=== PATIENT | male | born 1960 | race Caucasian/White ===

== ENCOUNTER 2018-01-11 14:27 | Outpatient (CLI) | payer BC ==
--- NOTE | 2018-01-11 15:58 | MRI ---
MRI LUMBAR SPINE WITHOUT CONTRAST: Multiplanar multisequential imaging lumbar spine obtained. INDICATION: Lumbar radiculopathy. FINDINGS: The lumbar vertebrae maintain normal height and alignment. Vertebral body signal is normal. Degenerative disk changes with disk narrowing seen at L2-3, L4-5, and L5-S1. At L1-2, there is an asymmetric disk bulge paracentrally to the left which flattens the anterior thec al sac. No significant central canal or foraminal stenosis. At L2-3, broad-based disk protrusions present. This flattens the thecal sac and is associated with f acet hypertrophy resulting in moderate to severe central canal stenosis. Bilateral foraminal encroac hment from the diffuse disk. At L3-4, no significant disk bulge or protrusion. Mild facet arthrosis and hypertrophy. No signific ant central canal or foraminal stenosis. At L4-5, broad-based disk protrusion flattens the thecal sac. Facet and ligamentous hypertrophy. Mo derate to severe central canal stenosis. Bilateral foraminal encroachment from the diffuse disk prot rusion. At L5-S1, broad-based disk protrusion with focal extruded disk centrally and slightly to the left com pressing the thecal sac. Facet hypertrophy. Moderate to severe central canal stenosis. Displacemen t of the traversing left S1 nerve root. Moderate central canal stenosis. IMPRESSION: Disk protrusion at L2-3, L4-5, and L5-S1 as described above. POS: [facility]
== END 2018-01-11 14:28 | disposition home or self-care (01) ==
LOC: MRI 14:27
PROVIDERS: ATTEND Student in an Organized Health Care Education/Training Program
DX: M51.16 Intervertebral disc disorders with radiculopathy, lumbar region (principal); M51.17 Intervertebral disc disorders with radiculopathy, lumbosacral region; R20.8 Other disturbances of skin sensation
CPT/HCPCS: 72148

== ENCOUNTER 2018-01-25 09:36 | Outpatient (CLI) | payer BC | END 2018-01-25 09:37 | disposition home or self-care (01) | LOC: LABBT 09:36 | PROVIDERS: ATTEND Neurological Surgery | DX: Z01.818 Encounter for other preprocedural examination (principal); M54.16 Radiculopathy, lumbar region ==

== ENCOUNTER 2018-01-27 07:15 | Day surgery (SDC) | payer BC ==
[2018-01-25 09:52] VITALS: BMI 33.6
[2018-01-27] MEDS ORDERED: CEFAZOLIN/Water 2 GM/20 ML SYRINGE ONE (08:45)
[2018-01-27] MEDS ORDERED: Midazolam HCl 2 mg/2 ml Vial ONE (09:15)
[2018-01-27] MEDS ORDERED: Bupivacaine HCl 0.5%/Epinephrine 1:200,000/PF 30 ml Vial ONE (09:25)
[2018-01-27] MEDS ORDERED: Fentanyl 100 MCG/2 ML VIAL ONE ×2 (09:31→12:20)
[2018-01-27] MEDS ORDERED: Clindamycin/D5W 900 mg/50 ml Premix Bag ONE (09:51)
--- NOTE | 2018-01-27 13:24 | OP ---
DATE OF PROCEDURE: 01/27/2018 SURGEON: Job José M.D. SENIOR FOREMAN: Juan Antonio Ramirez PA-C. INDICATION: Pain. DIAGNOSIS: Lumbar radiculopathy. PROCEDURE: L4 and L5 discectomy. ANESTHESIA: General. TECHNIQUE: The patient was brought into the operating room and placed under general anesthesia. He was flipped from a supine or prone position on the operating room table. A linear incision was plann ed over L4-5. After prepping and draping and after an appropriate operative pause, the incision was created. The soft tissues were swept away from midline. A self-retaining retractor was placed on th e left side. After obtaining a C-arm image confirmed the appropriate level, hemilaminectomy and deco mpression were performed at L4 and L5. The descending L5 nerve root was mobilized medially and a dis kectomy was performed. The L5 disk space entered. There was decompression of the descending S1 nerv e root. We then redirected our attention to the level above at L4 where the L5 nerve root was mobili zed medially where there was a diskectomy performed at the L4 disc space to decompress the descending L5 nerve root. After both levels were decompressed via hemilaminectomy, medial facetectomy, diskect angeli, the wound was irrigated. Hemostasis was maintained throughout. The wound was then closed in an atomic layers and a pressure dressing was applied. There were no known procedural complications.
[2018-01-27] MEDS ORDERED: Acetaminophen/Codeine 30-300mg Tablet ONE (13:40)
== END 2018-01-27 14:45 | disposition home or self-care (01) ==
LOC: SDC 07:15
PROVIDERS: ATTEND Neurological Surgery
PROC: 01NB0ZZ Release Lumbar Nerve, Open Approach (ICD-10-PCS; principal; 2018-01-27)
PROC: 0SB20ZZ Excision of Lumbar Vertebral Disc, Open Approach (ICD-10-PCS; principal; 2018-01-27)
DX: M51.16 Intervertebral disc disorders with radiculopathy, lumbar region (principal); M48.061 Spinal stenosis, lumbar region without neurogenic claudication; Z88.1 Allergy status to other antibiotic agents; Z88.2 Allergy status to sulfonamides; Z79.899 Other long term (current) drug therapy
CPT/HCPCS: 76001; 96374; J0670; J2250; J3010; J3490

== ENCOUNTER 2018-04-01 09:07 | Outpatient (CLI) | payer BC ==
--- NOTE | 2018-04-01 12:41 | MRI ---
CERVICAL SPINE MRI WITHOUT CONTRAST: HISTORY: Pain. Radiculopathy. COMPARISON: None. TECHNIQUE: MRI cervical spine is performed without intravenous Gadolinium administration. Multisequential, mult iplanar imaging is performed. FINDINGS: Appropriate T1 marrow signal intensity of the cervical vertebrae. Cervical spine vertebral body heig ht is maintained. There is no fracture. No significant STIR hyperintensity to suggest vertebral bod y edema or ligamentous injury. There is intrinsic T1 and T2 hypointensity at the T2 level, incompletely evaluated. Visualized brain parenchyma, cervicomedullary junction, cervical cord, and the upper thoracic cord wilkes ve a normal size and signal intensity. C2-C3: No significant disk-osteophyte complex. No significant central canal stenosis. Foramen are patent. C3-C4: No significant disk-osteophyte complex. No significant central canal stenosis. Neural matt en are patent bilaterally. C4-C5: Broad-based disk-osteophyte complex has a left paracentral component. Moderate right foramin al narrowing. Severe left foraminal narrowing due to degenerative change of the uncovertebral joint. C5-C6: Broad-based disk-osteophyte complex abuts the thecal sac. Ventral subarachnoid space is effa yas. There is mild to moderate central canal stenosis. Moderate to severe bilateral foraminal narro wing due to degenerative changes of the uncovertebral joint. C6-C7: Broad-based disk-osteophyte complex abuts the thecal sac. There is no significant central ca nal stenosis. Moderate to severe bilateral foraminal narrowing. C7-T1: No significant disk-osteophyte complex. No significant central canal stenosis. Neural matt en are patent. IMPRESSION: Degenerative changes of the cervical spine as above. POS: [facility]
== END 2018-04-01 09:08 | disposition home or self-care (01) ==
LOC: SCSMRI 09:07
PROVIDERS: ATTEND Neurological Surgery
DX: M47.22 Other spondylosis with radiculopathy, cervical region (principal)
CPT/HCPCS: 72141

== ENCOUNTER → 2018-08-20 | Day surgery (SDC) | payer BC ==
[2018-08-13 14:01] VITALS: BMI 34.0
--- NOTE | 2018-08-19 16:33 | HP ---
HISTORY OF PRESENT ILLNESS: Mr. Stone is a pleasant 57-year-old man known to us for previous lumbar decompression over the summer time last year, who returns now with significant neck pain and bilateral radicular symptoms, which most fit C6, but also partial C7 fashion. He hopes to move forward with treating this surgically if possible. PAST MEDICAL HISTORY: Significant for gout and history of kidney stones as well as melanoma. PAST SURGICAL HISTORY: Lithotripsy and colectomy. MEDICATIONS: Allopurinol. ALLERGIES: NO KNOWN DRUG ALLERGIES. PHYSICAL EXAMINATION: GENERAL: The patient is alert and oriented x3. MUSCULOSKELETAL: Gait is normal. No ataxia. Upper extremity motor exam is normal. He has some limited range of motion of cervical spine and rotational movement to the left and right. ASSESSMENT: Cervical radiculopathy. PLAN: Dr. José met with the patient, reviewed imaging, advocated for C5-C7 ACDF. He explained to the patient the risks, benefits, and alternatives to the procedure. The patient expressed understanding and elected to move forward with surgery as discussed. I do believe the patient is mentally competent and capable of making medical decisions for himself. We will move forward with surgery as planned. Job ID: [id number]
[~2018-08-20] MED LIST: Acetaminophen/Codeine 30-300mg Tablet ONE; CEFAZOLIN 2 GM/50 ML BAG ONE; Clindamycin/D5W 900 mg/50 ml Premix Bag ONE; Dexamethasone 20 MG/5 ML VIAL ONE; Fentanyl 100 MCG/2 ML VIAL ONE; Glycopyrrolate 0.2 MG/ML 5 ML SYRINGE ONE; Ketorolac Tromethamine 30 MG/ML VIAL ONE; Levofloxacin 500 mg/D5W 100 ml Premix Bag ONE; Lidocaine 1% PF 5 ML VIAL ONE; Midazolam HCl 2 mg/2 ml Vial ONE; Morphine 2 MG/ML SYRINGE ONE; Ondansetron PF 4 MG/2 ML Vial ONE; PHENYLEPHRINE-NS 100 MCG/ML 10 ML SYRINGE ONE; PROPOFOL 200 MG/20 ML VIAL ONE; Rocuronium Bromide 10 MG/ML (10ML VIAL) ONE; Tamsulosin HCl 0.4 MG CAP ONE; Thrombin 5000 UNITS/5 ML VIAL ONE; ePHEDrine 50 MG/ML VIAL ONE
--- NOTE | 2018-08-20 09:37 | OP ---
DATE OF PROCEDURE: 08/20/2018 PRINTING WORKER SUPERVISOR: Juan Antonio Ramirez PA-C INDICATION: Pain. DIAGNOSIS: Cervical radiculopathy. PROCEDURE PERFORMED: Anterior cervical diskectomy and fusion, C5 to C7. ANESTHESIA: General. DESCRIPTION OF PROCEDURE: The patient was brought into the operating room and placed under general anesthesia. He was placed on the table in supine position. A transverse incision was planned over the lateral aspect of the neck on the right. After prepping and draping and after preoperative pause, the incision was created. The soft tissues were swept away from midline. A blunt tissue plane was used to gain access to the prevertebral space. Self-retaining retractors were placed. The C-arm images were obtained to confirm the appropriate level. After confirming the appropriate level, diskectomy was performed at C6-C7. All disk material as well as anterior and posterior osteophytes were removed. A 7-mm lordotic PEEK cage packed with allograft and autograft material was placed in the interbody space. We then redirected our attention level above at C5-C6, where again an annulotomy was performed. All disk material as well as anterior and posterior osteophytes were removed. After complete decompression, a 6-mm lordotic PEEK cage packed with allograft and autograft material was placed in the interbody space. An anterior cervical plate was then fashioned to the front spine and secured with a total of 6 screws. Midline and lateral structures were inspected and found to be free from significant trauma. The wound was irrigated. Hemostasis was maintained throughout. The wound was then closed in anatomic layers and a pressure dressing was applied. There were no known procedural complications. Job ID: [id number]
== END ==
LOC: SDC 05:42
PROVIDERS: ATTEND Neurological Surgery
DX: M54.12 Radiculopathy, cervical region (principal); Z79.899 Other long term (current) drug therapy; Z88.1 Allergy status to other antibiotic agents; Z88.2 Allergy status to sulfonamides; Z98.890 Other specified postprocedural states
CPT/HCPCS: 76000; C1713; C1776; J1100; J1885; J1956; J2001; J2250; J2270; J2405; J2704; J3010; J3490

== ENCOUNTER 2019-01-07 12:02 | Outpatient (CLI) | payer BC ==
--- NOTE | 2019-01-07 14:00 | MRI ---
MRI Lumbar Spine W WO Con History: M54.16 left radiculopathy Comparison: MRI lumbar spine January 2018 Findings: Aortic contour is nonaneurysmal. No retroperitoneal or periaortic adenopathy. No abnormal r enal enhancing mass. Levels are as follows: L1/L2: Normal disc. No neural foraminal or spinal canal narrowing. L2/L3: Large broad-based posterior disc bulge causing high-grade narrowing of the spinal canal to eusebia roximate 4 mm with crowding of the more caudal nerve roots. There is also moderate bilateral neural foraminal narrowing with abutment of the left exiting and traversing nerve roots. Mild facet arthrosi s. L3/L4: Mild facet arthrosis. Very small bilateral subforaminal posterior disc osteophyte complexes. N o significant neural foraminal or spinal canal narrowing. L4/L5: Large circumferential disc bulge. Moderate facet arthropathy on the right and moderate to gabriel re on the left. Left hemilaminectomy changes. Moderate to severe left neural foraminal narrowing. Moderate right neural foraminal narrowing. There is abnormal scar and granulation tissue extending ca udad along the L5/S1 neural foramina. Spinal canal is narrowed to 3 mm. L5/S1: Large broad-based posterior disc osteophyte complex extending into both subforaminal zones. Mo derate to severe bilateral neural foraminal narrowing and abutment of the exiting and traversing nerve roots. Left hemilaminectomy changes. Spinal canal is narrowed to 4 mm. Impression: 1. Multilevel severe spinal canal and neural foraminal narrowing. There is superimposed congenitally foreshortened pedicles of the lumbar spine contributing to spinal canal narrowing. 2. Postoperative scar and granulation tissue does extend into the left L4/L5 and L5/S1 neural foramin a with crowding of the exiting nerve roots. 3. Due to the L2/L3 broad based disc bulge there is crowding of the more craniad cauda equina nerve r oots. Transcribed Date/Time: 01/07/2019 2:46 PM
== END 2019-01-07 12:03 | disposition home or self-care (01) ==
LOC: SCSMRI 12:02
PROVIDERS: ATTEND Neurological Surgery
DX: M51.16 Intervertebral disc disorders with radiculopathy, lumbar region (principal); M48.061 Spinal stenosis, lumbar region without neurogenic claudication; Z98.890 Other specified postprocedural states
CPT/HCPCS: 72158

== ENCOUNTER 2019-02-02 05:42 | Day surgery (SDC) | payer BC ==
[2019-01-26 14:45] VITALS: BMI 33.2
--- NOTE | 2019-02-01 21:02 | HP ---
HISTORY OF PRESENT ILLNESS: Mr. Stone is a pleasant 58-year-old man, known to us for ACDF from prior lumbar decompression, who presents today with onset of left-sided L5 pains with a new MRI that reveals stenosis at the left L4-5 lateral recess and left L5 foramina. He has treated this conservatively with injections and therapy and hopes to move forward with surgery at this time. PAST MEDICAL HISTORY: Significant for gout, kidney stones, and melanoma. PAST SURGICAL HISTORY: Lithotripsy, colectomy, lumbar decompression and ACDF. MEDICATIONS: Allopurinol. ALLERGIES: NO KNOWN DRUG ALLERGIES. PHYSICAL EXAMINATION: The patient is alert and oriented x3. Gait is normal. No ataxia. Upper extremity motor exam is normal. Lower extremity motor exam is normal. ASSESSMENT: Lumbar radiculopathy. PLAN: Dr. José met with the patient, reviewed imaging, advocated for a left L4-L5 and left L5-S1 decompression. He explained to the patient the risks, benefits, and alternatives to the procedure. The patient expressed understanding and elected to move forward with surgery as discussed. I do believe the patient is mentally competent and capable of making medical decisions for himself. We will move forward with surgery as planned. Job ID: [id number]
[2019-02-02] MEDS ORDERED: ceFAZolin Sodium (SDC) 2 GM/100 ML BAG ONE (06:05)
[2019-02-02] MEDS ORDERED: Fentanyl 100 MCG/2 ML VIAL ONE ×2 (06:20→07:00)
[2019-02-02] MEDS ORDERED: Bupivacaine HCl 0.5%/Epinephrine 1:200,000/PF 30 ml Vial ONE (06:28)
[2019-02-02] MEDS ORDERED: Thrombin 5000 UNITS/5 ML VIAL ONE (06:28)
[2019-02-02] MEDS ORDERED: Levofloxacin 500 mg/D5W 100 ml Premix Bag ONE (06:42)
[2019-02-02] MEDS ORDERED: Clindamycin/D5W 900 mg/50 ml Premix Bag ONE (06:42)
[2019-02-02] MEDS ORDERED: Tamsulosin HCl 0.4 MG CAP ONE (09:30)
[2019-02-02] MEDS ORDERED: Morphine 4 MG/ML VIAL ONE ×2 (09:55→10:21)
[2019-02-02] MEDS ORDERED: Acetaminophen/Codeine 30-300mg Tablet ONE (11:12)
--- NOTE | 2019-02-03 10:33 | OP ---
DATE OF PROCEDURE: 02/02/2019 LABORATORY TECH: Juan Antonio Ramirez. INDICATION: Pain. DIAGNOSIS: Lumbar radiculopathy. PROCEDURES PERFORMED: Reoperation left L4-L5 and left L5-S1 decompression. ANESTHESIA: General. TECHNIQUE: The patient was brought into the operating room and placed under general anesthesia. He was flipped from the supine to prone position on the operating room table. A linear incision was planned from L4 through S1, which encompassed the prior incision site. After prepping and draping and after an appropriate operative pause, the incision was created. The soft tissues were swept left of midline. Self-retaining retractors were placed in the wound for optimal exposure. After confirming the appropriate level with C-arm fluoroscopy and identifying the bone defects from the patient's prior surgery, a high-speed cutting drill bit as well as 2 and 3 mm Kerrisons were used to extend the bone work laterally to further decompress the L4-L5 and L5-S1 segment. We encountered scar from his old procedure and that area was decompressed. There were disk osteophyte complexes present in the lateral recesses, which were also decompressed until the lateral recesses and the descending nerve roots at those two segments were decompressed. The wound was then irrigated. Hemostasis was maintained throughout. The wound was then closed in anatomic layers and a pressure dressing was applied. There were no known procedural complications. Job ID: [id number]
== END 2019-02-02 11:50 | disposition home or self-care (01) ==
LOC: SDC 05:42
PROVIDERS: ATTEND Neurological Surgery
PROC: 0SB20ZZ Excision of Lumbar Vertebral Disc, Open Approach (ICD-10-PCS; principal; 2019-02-02)
DX: M48.061 Spinal stenosis, lumbar region without neurogenic claudication (principal); M54.16 Radiculopathy, lumbar region; M10.9 Gout, unspecified; Z98.1 Arthrodesis status; Z88.2 Allergy status to sulfonamides; Z88.1 Allergy status to other antibiotic agents; Z79.1 Long term (current) use of non-steroidal anti-inflammatories (NSAID); Z79.899 Other long term (current) drug therapy
CPT/HCPCS: 76000; J0670; J0690; J1956; J2270; J3010; J3490

== ENCOUNTER 2020-07-18 15:12 | Inpatient (IN) | payer BC ==
[~2020-07-18 15:12] MED LIST changes: -Acetaminophen/Codeine 30-300mg Tablet ONE; -CEFAZOLIN 2 GM/50 ML BAG ONE; -Clindamycin/D5W 900 mg/50 ml Premix Bag ONE; -Dexamethasone 20 MG/5 ML VIAL ONE; -Fentanyl 100 MCG/2 ML VIAL ONE; -Glycopyrrolate 0.2 MG/ML 5 ML SYRINGE ONE; +Iopamidol-370 76% 500 ML 1 ML ONE; -Ketorolac Tromethamine 30 MG/ML VIAL ONE; -Levofloxacin 500 mg/D5W 100 ml Premix Bag ONE; -Lidocaine 1% PF 5 ML VIAL ONE; -Midazolam HCl 2 mg/2 ml Vial ONE; -Morphine 2 MG/ML SYRINGE ONE; -Ondansetron PF 4 MG/2 ML Vial ONE; -PHENYLEPHRINE-NS 100 MCG/ML 10 ML SYRINGE ONE; -PROPOFOL 200 MG/20 ML VIAL ONE; -Rocuronium Bromide 10 MG/ML (10ML VIAL) ONE; -Tamsulosin HCl 0.4 MG CAP ONE; -Thrombin 5000 UNITS/5 ML VIAL ONE; -ePHEDrine 50 MG/ML VIAL ONE
[2020-07-18] MEDS ORDERED: Acetaminophen 500 MG TAB ONE (15:35)
[2020-07-18] MEDS ORDERED: Cefepime 2 GM VIAL ONE (15:35)
[2020-07-18 16:18] LABS: #Lymphocytes 1.3 thou/uL (1.20-3.40); #Monocytes 0.5 thou/uL (0.11-0.59); #Neutrophils 11.5 thou/uL (1.40-6.50); %Basophils 0.2 % (0.0-1.0); %Eosinophils 0.2 % (0.0-10.0); %Lymphocytes 9.5 % (21.0-51.0); %Monocytes 3.5 % (0.0-10.0); %Neutrophils 86.5 % (42.0-75.0); Hemoglobin 14.6 g/dL (14.0-18.0); Mean Corpuscular HGB CONC 33.9 g/dL (32.0-36.0); Mean Corpuscular Hemoglobin 30.9 pg (27.0-31.0); Mean Corpuscular Volume 91.3 fL (78.0-98.0); Mean Platelet Volume 7.7 fL (7.4-10.4); Platelet Count 171 thou/uL (130-400); RBC Distribution Width 11.8 % (11.5-14.5); Red Blood Cell (RBC) Count 4.72 mill/uL (4.70-6.10); White Blood Cell (WBC) Count 13.3 thou/uL (4.8-10.8)
--- NOTE | 2020-07-18 16:24 | RAD ---
EXAM: XR Chest 1 View Portable PROVIDED CLINICAL HISTORY: Fever COMPARISON: 07/16/2020 FINDINGS: Cardiac and mediastinal silhouette is unchanged in appearance. There are persistent parenchymal opaci ties present within the right greater than left upper lung zones. Lungs appear otherwise clear. There is no pleural fluid or pneumothorax apparent. IMPRESSION: Persistent bilateral upper lung zone parenchymal opacities, which could reflect pneumonia.
[2020-07-18 16:26] LABS: INR-International Normal Ratio 1.1; Prothrombin Time 14.1 sec (12.0-14.7)
[2020-07-18 16:27] LABS: PTT 34.4 sec (22.9-36.1)
--- NOTE | 2020-07-18 16:43 | CT ---
EXAM: CT pulmonary angiogram with IV contrast and 3-D MIP reconstructions PROVIDED CLINICAL HISTORY: Shortness of breath COMPARISON: None FINDINGS: There is no evidence for central or segmental pulmonary embolus. Vascular calcification including cor onary calcium is demonstrated. There is extensive bilateral groundglass opacity with admixed consolidation. No pleural fluid or pneumothorax apparent. There are prominent by number but not pathologically enlarged mediastinal lymph nodes. The airway appears patent and of normal caliber. The visualized portions of the upper abdomen demonstrate no acute findings. Fatty infiltration of the liver is demonstrated. The osseous structures demonstrate no concerning lytic or blastic lesions. IMPRESSION: 1. No evidence for central or segmental pulmonary embolus. 2. Pulmonary parenchymal findings typical for Covid pneumonia. 3. Other findings as above.
[2020-07-18 16:48] LABS: ALT (SGPT) 22 U/L (8-55); AST (SGOT) 22 U/L (5-34); Alkaline Phosphatase 48 U/L (40-110); Anion Gap 23 mmol/L (10-20); BUN (Urea Nitrogen) 22 mg/dL (8.4-25.7); Bilirubin, Total 0.5 mg/dL (0.2-1.2); Calc. Creatinine Clearance 0 mL/min (70-130); Calcium 9.1 mg/dL (7.8-10.44); Carbon Dioxide 18 mmol/L (22-29); Chloride 94 mmol/L (98-107); Globulin 3.6 g/dL (2.4-3.5); Glucose 376 mg/dL (70-105); Lipase 31 U/L (8-78); Magnesium 1.6 mg/dL (1.6-2.6); Potassium 3.9 mmol/L (3.5-5.1); Protein, Total 7.6 g/dL (6.0-8.3); Sodium 131 mmol/L (136-145)
[2020-07-18 17:33] LABS: SARS-CoV-2 NAA Rapid Test DETECTED (NotDetected)
[2020-07-18] MEDS ORDERED: Aspirin Chewable 81 MG TAB ONE (17:53)
[2020-07-18] MEDS ORDERED: Dexamethasone 4 mg/ml Vial ONE (17:53)
--- NOTE | 2020-07-18 18:08 | PDOC.FPRHP ---
- History of Present Illness Chief Complaint: low O2 sat History of Present Illness: Mr. Stone is a 59 yo M with PMH gout, nephrolithiasis, recently diagnosed DM2 presents with fever, body aches and chills. Symptoms started 07/09 after receiving dose #1 of the COVID vaccine. Tmax at home of 103F. He has had covid swab x3 negative outpatient. Flu x2 negative. Was seen this week and started on levaquin on 07/16 due to concern for bacterial PNA, has completed one day of this. He was noted to have O2 sats of 85% at home today and clinically wasn't improving so family brought him into the ER. No known sick contacts or recent travel. In the ER CTA was done which was negative for PE. He was started on 4L [place] Was given a dose of vanc & cefepime. Was also found to be in mild DKA with an DARELL and high lactic acid, given 1L NS bolus. - Allergies/Adverse Reactions Allergies Allergy/AdvReac Type Severity Reaction Status Date / Time cefaclor [From [facility]] Allergy Verified 10/01/19 05:26 Sulfa (Sulfonamide Allergy Verified 10/01/19 05:26 Antibiotics) - Home Medications Medication Instructions Recorded Confirmed Type Allopurinol 300 mg PO QAM 07/17/15 08/13/18 History Acetaminophen With Codeine 1 tablet PO Q6HR PRN 01/26/19 01/26/19 History [Tylenol with Codeine #4] Ibuprofen [Advil] 200 mg PO Q4HR 01/26/19 01/26/19 History tiZANidine HCl [Tizanidine HCl] 4 mg PO TID 01/26/19 01/26/19 History - History PMH: gout, nephrolithiasis, 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 Father-colon ca Social: Occasional EtOH, no smoking or drugs - Review of Systems General: reports: fever/chills, weight/appetite/sleep changes, night sweats Eyes: denies: eye pain, vision changes ENT: denies: nasal congestion, rhinorrhea Respiratory: reports: shortness of breath. denies: cough, congestion Cardiovascular: denies: chest pain, palpitation, edema, orthopnea Gastrointestinal: reports: diarrhea. denies: nausea, vomiting, constipation, abdominal pain Skin: denies: rashes, lesions Musculoskeletal: denies: pain, tenderness, stiffness, arthritis/arthralgias Neurological: reports: weakness. denies: numbness, syncope, seizure Psychological: denies: anxiety, depression - Vital signs BP: 178/91, Pulse: 101, Resp: 30, Temp: 103.2 (Oral), O2 sat: 91 on 2L [place] - Physical Exam Constitutional: NAD, awake, alert and oriented, well developed HEENT: normocephalic and atraumatic, PERRLA, EOMI, conjunctiva clear, no scleral icterus, MMM, oropharynx clear, good dention Neck: supple, FROM, trachea midline Heart: RRR, normal S1/S2, no murmurs/rubs/gallops Lungs: CTAB, no respiratory distress, good air movement Abdomen: soft, non-tender, bowel sounds present, no masses/distention Musculoskeletal: normal structure, normal tone, ROM grossly normal Neurological: no focal deficit, CN II-XII intact Skin: no rash/lesions, good turgor Heme/Lymphatic: no unusual bruising or bleeding Psychiatric: normal mood and affect, good judgment and insight FMR H&P: Results - Labs Result Diagrams: 07/18/20 16:09 07/18/20 23:19 Lab results: WBC 13.3 thou/uL (4.8-10.8) H 07/18/20 16:09 Hgb 14.6 g/dL (14.0-18.0) 07/18/20 16:09 Hct 43.1 % (42.0-52.0) 07/18/20 16:09 MCV 91.3 fL (78.0-98.0) 07/18/20 16:09 Plt Count 171 thou/uL (130-400) 07/18/20 16:09 Neutrophils % 86.5 % (42.0-75.0) H 07/18/20 16:09 Sodium 131 mmol/L (136-145) L 07/18/20 16:09 Potassium 3.9 mmol/L (3.5-5.1) 07/18/20 16:09 Chloride 94 mmol/L (98-107) L 07/18/20 16:09 Carbon Dioxide 18 mmol/L (22-29) L 07/18/20 16:09 BUN 22 mg/dL (8.4-25.7) 07/18/20 16:09 Creatinine 1.51 mg/dL (0.7-1.3) H 07/18/20 16:09 Glucose 376 mg/dL (70-105) H 07/18/20 16:09 Lactic Acid 3.1 mmol/L (0.5-2.2) H 07/18/20 16:09 Calcium 9.1 mg/dL (7.8-10.44) 07/18/20 16:09 Total Bilirubin 0.5 mg/dL (0.2-1.2) 07/18/20 16:09 AST 22 U/L (5-34) 07/18/20 16:09 ALT 22 U/L (8-55) 07/18/20 16:09 Alkaline Phosphatase 48 U/L (40-110) 07/18/20 16:09 Serum Total Protein 7.6 g/dL (6.0-8.3) 07/18/20 16:09 Albumin 4.0 g/dL (3.5-5.0) 07/18/20 16:09 Lipase 31 U/L (8-78) 07/18/20 16:09 - Radiology Interpretation Chest x-ray Status: image reviewed by me, report reviewed by me Additional comment: Persistent b/l upper lung zone parenchymal opacities, possible PNA CT scan - chest Status: image reviewed by me, report reviewed by me Additional comment: No PE, b/l ground glass opacities, extensive FMR H&P: A/P - Plan 59 yo M here for acute hypoxic respiratory failure 2/2 COVID PNA Acute hypoxic respiratory failure 2/2 COVID PNA -85% on RA at home, 91% on 4L [place] 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 Pertinent changes/additions are listed here. Addendum - Attending - Attending Attestation Date/Time: 07/19/20 0116 I personally evaluated the patient and discussed the management with Dr. Stewart on 07/18/2020 I agree with the History, Examination, Assessment and Plan documented above with any addition or exceptions noted below - 59 yo male with h/o gout, nephrolithiasis, eccrine gland tumor s/p resection and newly diagnosed DM presents with fever, fatigue, muscle aches since 07/09. Received first dose of COVID vaccine on that day. Had negative flu and COVID test as outpatient. Today was noted to have O2 sats in 80s at home. T 103 VSS Exam repeated by me and agree with resident's findings. Labs: WBC= 13.1, H/H=14.6/42.1, Vnj=166, Wv=189, K=3.9, Cl=94, CO2=18, BUN/Cr=22/1.51, Wqzn=614, Diff- 86N/9L, lactic acid=3.1- >1.9, CRP=31.66, slgivxgb=168.36, procal=0.95, Ddimer=0.96, ZjlZ7z=97.9, beta hydroxybutyrate=1.94, Rapid COVID (+), CTA= neg ofr PE; findings c/w COVID pneum onia. A/P: 1) Acute resp failure secondary to COVID pneumonia- Continue O2; titrate as tolerated. continue dexamethasone. 2) COVID pneumonia- Continue dexamethasone; convalscent plasma and remdesivir ordered. 3) Mild DKA - started on DKA protocol. Monitor BMP. 4) DARELL- continue IVF; monitor I/Os.
[2020-07-18] MEDS ORDERED: INSULIN REGULAR IN 0.9 % NACL 100 UNIT/100 ML BAG ONE (18:10)
[2020-07-18 19:23] LABS: Lactic Acid 1.9 mmol/L (0.5-2.2)
[2020-07-18 19:39] LABS: Bacteria/HPF None Seen HPF (None Seen); Bilirubin Negative (Negative); Blood, Urine 2+ (Negative); Clarity Clear (Clear); Glucose, Urine (Dipstick) Greater than 1000 mg/dL (Negative); Ketone, Urine 60 mg/dL (Negative); Leukocyte Negative Leu/uL (Negative); Nitrite Negative (Negative); Protein, Urine (Dipstick) 100 mg/dL (Neg-Trace); RBC/HPF 0-3 HPF (0-3); Squamous Epithelial 0-3 HPF (0-3); Urobilinogen Normal mg/dL (Less than 2); WBC/HPF 0-3 HPF (0-3)
[2020-07-18 19:40] LABS: Specific Gravity, Urine 1.049 (1.002-1.036)
[2020-07-18 19:47] LABS: Hemoglobin A1c 12.9 % (4.0-6.0)
[2020-07-18] MEDS ORDERED: Pharmacy to Dose REMDESIVIR IVPB PRN (19:49)
[2020-07-18 20:57] LABS: Anion Gap 19 mmol/L (10-20); BUN (Urea Nitrogen) 20 mg/dL (8.4-25.7); Calc. Creatinine Clearance 0 mL/min (70-130); Calcium 8.4 mg/dL (7.8-10.44); Carbon Dioxide 18 mmol/L (22-29); Chloride 102 mmol/L (98-107); Glucose 265 mg/dL (70-105); Potassium 3.5 mmol/L (3.5-5.1); Sodium 135 mmol/L (136-145)
[2020-07-18] MEDS ORDERED: REMDESIVIR (EUA) 200 MG in Sodium Chloride 0.9% 250 ML 210 ML IV SCH (22:00)
[2020-07-18 23:57] LABS: Anion Gap 17 mmol/L (10-20); BUN (Urea Nitrogen) 17 mg/dL (8.4-25.7); Calc. Creatinine Clearance 0 mL/min (70-130); Calcium 8.5 mg/dL (7.8-10.44); Carbon Dioxide 20 mmol/L (22-29); Chloride 106 mmol/L (98-107); Glucose 114 mg/dL (70-105); Potassium 3.9 mmol/L (3.5-5.1); Sodium 139 mmol/L (136-145)
[2020-07-18] MEDS: NS 0.9% w/ 20 MEQ KCL 1,000 ML IV ONE (23:58)
[2020-07-19] MEDS: NS 0.9% w/ 20 MEQ KCL 1,000 ML IV ONE ×2 (00:10→03:07)
[2020-07-19 00:16] VITALS: BMI 32.5
[2020-07-19 00:21] LABS: Creatinine, Urine 102.23 mg/dL (63-166); Microalbumin Urine 43.3 mg/dL (0.5-50.0); Microalbumin/Creat Ratio 423.6 mg/g (Less than 30)
[2020-07-19] MEDS ORDERED: Sodium Chloride 0.9% 1,000 ML IV PRN ×4 (00:23)
[2020-07-19] MEDS ORDERED: NS 0.9% w/ 20 MEQ KCL 1,000 ML IV PRN ×2 (00:23)
[2020-07-19] MEDS ORDERED: D5 1/2 NS w/20 mEq KCL 1,000 ML IV PRN (00:23)
[2020-07-19] MEDS ORDERED: Electrolyte Replacement Protocol 1 EACH IVPB SCH (00:23)
[2020-07-19] MEDS ORDERED: HUMULIN R 100 UNITS in Sodium Chloride 0.9% 100 ML IVPB SCH (00:23)
[2020-07-19] MEDS ORDERED: Dextrose 5 %-0.45 % NaCl 1,000 ML IV PRN (00:23)
[2020-07-19] MEDS ORDERED: Ondansetron PF 4 MG/2 ML Vial IVP PRN (00:23)
[2020-07-19] MEDS ORDERED: Heparin 5,000 UNITS/ML VIAL SC SCH ×2 (00:30→09:00)
[2020-07-19] MEDS ORDERED: Insulin Glargine 20 UNITS in Pre-Filled Syringe 1 EACH SC SCH ×2 (01:45→21:00)
[2020-07-19] MEDS ORDERED: Cefepime 2 GM in Sodium Chloride 0.9% 100 ML IVPB SCH (03:00)
[2020-07-19] MEDS ORDERED: Cefepime 2 GM VIAL ONE (03:27)
[2020-07-19] MEDS ORDERED: Dextrose 5% in Water 1,000 ML IV PRN ×2 (05:13→06:49)
[2020-07-19] MEDS ORDERED: Dextrose 50% Abboject 50 ML SYRINGE SLOW IVP PRN ×2 (05:13→06:49)
[2020-07-19 05:56] LABS: #Lymphocytes 1.1 thou/uL (1.20-3.40); #Monocytes 0.6 thou/uL (0.11-0.59); #Neutrophils 15.9 thou/uL (1.40-6.50); %Basophils 0.1 % (0.0-1.0); %Eosinophils 0.1 % (0.0-10.0); %Lymphocytes 6.5 % (21.0-51.0); %Monocytes 3.5 % (0.0-10.0); %Neutrophils 89.8 % (42.0-75.0); Hemoglobin 13.9 g/dL (14.0-18.0); Mean Corpuscular HGB CONC 33.8 g/dL (32.0-36.0); Mean Corpuscular Hemoglobin 30.9 pg (27.0-31.0); Mean Corpuscular Volume 91.6 fL (78.0-98.0); Platelet Count 188 thou/uL (130-400); RBC Distribution Width 12.1 % (11.5-14.5); Red Blood Cell (RBC) Count 4.48 mill/uL (4.70-6.10); White Blood Cell (WBC) Count 17.7 thou/uL (4.8-10.8)
[2020-07-19 06:21] LABS: Anion Gap 19 mmol/L (10-20); BUN (Urea Nitrogen) 15 mg/dL (8.4-25.7); Calc. Creatinine Clearance 104 mL/min (70-130); Calcium 8.3 mg/dL (7.8-10.44); Carbon Dioxide 16 mmol/L (22-29); Chloride 106 mmol/L (98-107); Glucose 249 mg/dL (70-105); Potassium 4.6 mmol/L (3.5-5.1); Sodium 136 mmol/L (136-145)
[2020-07-19 06:22] LABS: Cardiac Risk 5.5 (Less than 4.5)
[2020-07-19] MEDS ORDERED: guaiFENesin 100 MG/5 ML UDCUP PO PRN (07:56)
[2020-07-19] MEDS ORDERED: metFORMIN 500 MG TAB PO SCH ×2 (08:00)
[2020-07-19] MEDS ORDERED: Dexamethasone 4 mg/ml Vial SLOW IVP SCH (09:00)
[2020-07-19] MEDS ORDERED: metFORMIN XR 500 MG TAB PO SCH (09:15)
[2020-07-19] MEDS ORDERED: Simethicone Chewable 80 MG TAB PO PRN (09:30)
--- NOTE | 2020-07-19 09:35 | PDOC.FM ---
- Subjective Subjective: Mr. Stone was just moved up to the floor. He is feeling well with HFNC that was started last night. Reports he got a little SOB with transport. Tolerating PO, awaiting breakfast. Notes a sore throat and some abdominal gas/distention. - Objective Vital Signs & Weight: Vital Signs (12 hours) Temp Pulse Resp BP BP Pulse Ox 07/19/20 08:00 98.1 F 87 22 H 135/70 96 07/18/20 23:02 83 18 147/82 H 93 L Weight Weight 99.8 kg Result Diagrams: 07/19/20 05:45 07/19/20 05:45 Phys Exam - Physical Examination Constitutional: NAD Respiratory: no wheezing, clear to auscultation bilateral Cardiovascular: RRR, no significant murmur Gastrointestinal: soft, positive bowel sounds (mild distention) Musculoskeletal: no edema Neurological: non-focal Psychiatric: normal affect Skin: normal turgor Dx/Plan - Plan Plan: 59 yo M here for acute hypoxic respiratory failure 2/2 COVID PNA Acute hypoxic respiratory failure 2/2 COVID PNA -85% on RA at home->NC-> HFNC 07/19 -CTA: extensive b/l groundglass opacities, no PE -continue dexamethasone daily -s/p convalescent plasma 07/18 -remdesivir started 07/18 -will discontinue cefepime considering procal 0.9, will recheck procal with next lab draw DKA, resolved -BHB elevated, AG 19, hyperglycemic - resolved overnight, DKA protocol discontinued, gap closed, continue lantus, SSI. Accuchecks now ACHS. 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 Will titrate as needed. -Diabetes education Gout -Continue home allopurinol IVF:SL Diet: CC Ppx: lovenox PCP-TAMP Dispo: continue HFNC, pending clinical improvement Addendum - Attending - Attending Attestation Date/Time: 07/19/20 1312 I personally evaluated the patient and discussed the management with Dr. Nugent I agree with the History, Examination, Assessment and Plan documented above with any addition or exceptions noted below. 59 yo male admitted for acute hypoxic respiratory failure due to COVID19 with underlying obesity, gout, and newly dx DM Patient now with increasing air hunger. Currently on HFNC with FiO2 of 68. Will increase for O2 sat goal of 92 to 96%. Continue dex and remedesivir. s/p plasma. Afebrile. Prone while awake. Now off insulin. Gap closed. Continue basal and adjust as needed due to steroid use. Restarted metformin. Would benefit from SGLT2 as well. Noted to have distended abdomen today. Likely related to HF and weak sphinter. Will start antiacid and gas pills. Monitor. NSAIDs are currently yessi. Will address with patient to see if truly needed due to increased risk for PUD and recent DARELL. Tylenol ordered. Radha
[2020-07-19] MEDS: Famotidine 20 MG TAB PO SCH ×2 (10:07→21:04)
[2020-07-19] MEDS: Dexamethasone 4 MG TAB PO SCH (10:08)
[2020-07-19] MEDS: Enoxaparin Sodium 40 MG/0.4 ML SYRINGE SC SCH (10:08)
[2020-07-19] MEDS ORDERED: Acetaminophen 325 MG TAB PO PRN (10:53)
[2020-07-19] MEDS ORDERED: Ondansetron ORAL SOLN. 4 MG/5 ML UDCUP PO PRN (10:54)
[2020-07-19] MEDS ORDERED: Allopurinol 300 MG TAB PO SCH (11:00)
[2020-07-19] MEDS: Ibuprofen 200 MG TAB PO SCH ×2 (11:28→17:20)
[2020-07-19] MEDS: HumaLOG 300 UNITS/3 ML VIAL SC PRN ×3 (11:34→20:55)
[2020-07-19] MEDS ORDERED: Albuterol 200 PUFF (6.7GM INHALER) INH SCH ×2 (12:30→15:00)
[2020-07-19] MEDS ORDERED: Cyclobenzaprine 10 MG TAB PO PRN (13:17)
[2020-07-19] MEDS: Albuterol 200 PUFF (6.7GM INHALER) INH SCH ×2 (15:18→17:21)
[2020-07-19] MEDS ORDERED: Ibuprofen 600 MG TAB PO PRN (17:35)
[2020-07-19] MEDS ORDERED: Fluticasone Propionate Nasal Spray 16 gm Bottle NASAL SCH (20:00)
[2020-07-19] MEDS ORDERED: INSULIN GLARGINE SC SCH (21:00)
[2020-07-19] MEDS ORDERED: PRE FILLED SC SCH (21:00)
[2020-07-19] MEDS: REMDESIVIR (EUA) 100 MG in Sodium Chloride 0.9% 250 ML 230 ML IV SCH (21:04)
[2020-07-20] MEDS ORDERED: Diabetic Tussin 200 MG/10 ML UDCUP PO PRN (03:19)
[2020-07-20] MEDS: HumaLOG 300 UNITS/3 ML VIAL SC PRN ×4 (05:49→20:22)
[2020-07-20] MEDS: Albuterol 200 PUFF (6.7GM INHALER) INH SCH ×4 (05:50→19:23)
[2020-07-20] MEDS ORDERED: metFORMIN XR 500 MG TAB PO SCH (08:00)
[2020-07-20] MEDS ORDERED: Chloraseptic Spray 180 ml Bottle PO PRN (08:39)
[2020-07-20] MEDS: Allopurinol 300 MG TAB PO SCH (08:56)
[2020-07-20] MEDS: Dexamethasone 4 MG TAB PO SCH (08:57)
[2020-07-20] MEDS: Famotidine 20 MG TAB PO SCH ×2 (08:57→20:21)
[2020-07-20] MEDS: Enoxaparin Sodium 40 MG/0.4 ML SYRINGE SC SCH (08:58)
[2020-07-20] MEDS: Empagliflozin 10 MG TAB PO SCH (08:58)
[2020-07-20] MEDS: Loratadine 10 MG TAB PO SCH (09:05)
--- NOTE | 2020-07-20 09:06 | PDOC.FM ---
- Subjective Subjective: Mr. Stone is feeling well. He is comfortable when resting in bed but becomes very SOB with any movement or activity. Denies diarrhea. Has mild cough and sore throat. Nose is sore due to HFNC, rate was decreased. Pulse ox with finger was 90-91% (ear often reads a few points higher). Tolerating PO intake but a little difficult with high flow. - Objective Vital Signs & Weight: Vital Signs (12 hours) Temp Pulse Resp BP Pulse Ox 07/20/20 07:45 98.5 F 75 16 123/69 95 07/20/20 03:14 97.6 F 77 24 H 127/75 97 07/20/20 00:44 94 L Weight Weight 99.8 kg I&O: 07/19/20 07/20/20 07/21/20 06:59 06:59 06:59 Intake Total 840 Output Total 1250 Balance -410 Result Diagrams: 07/19/20 05:45 07/19/20 05:45 Phys Exam - Physical Examination Constitutional: NAD (resting in bed) mild expiratory wheeze in the bases Cardiovascular: RRR, no significant murmur Gastrointestinal: soft, non-tender Musculoskeletal: no edema Neurological: non-focal Psychiatric: normal affect Skin: normal turgor Dx/Plan - Plan Plan: 59 yo M here for acute hypoxic respiratory failure 2/2 COVID PNA Acute hypoxic respiratory failure 2/2 COVID PNA -85% on RA at home->NC-> HFNC 07/19 -CTA: extensive b/l groundglass opacities, no PE -continue dexamethasone daily, albuterol -s/p convalescent plasma 07/18 -remdesivir started 07/18 -cefepime discontinued considering procal 0.9, will recheck procal with next lab draw -HFNC 45L/70%, rate was decreased due to discomfort New onset DM2, uncontrolled -Pt with CDL, 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 Start empagliflozin. Will likely increase nighttime lantus as well as BG have been uncontrolled -Diabetes education DKA, resolved -BHB elevated, AG 19, hyperglycemic - resolved overnight, DKA protocol discontinued, gap closed, continue lantus, SSI. Accuchecks now ACHS. DARELL, improved -likely prerenal, improved with IVF overnight -oral hydration Gout -Continue home allopurinol Allergies - restarted home antihistamine IVF:SL Diet: CC Ppx: lovenox PCP-[facility] Dispo: continue HFNC, pending clinical improvement Addendum - Attending - Attending Attestation Date/Time: 07/20/20 0865 I personally evaluated the patient and discussed the management with Dr. Nugent I agree with the History, Examination, Assessment and Plan documented above with any addition or exceptions noted below. 59 yo male admitted for acute hypoxic respiratory failure due to COVID19 with underlying obesity, gout, and newly dx DM Patient starting to improve today. Was able to decrease FiO2 but now slowly increasing. Appears to have more strength in his voice today and color to his face. Able to speak with minimal pauses. Still complains of fatigue/tirednes s/dyspnea with minimal active such as getting up to bedside commode. Still having difficulty with glucose levels. Now experiencing max steroid effect. Will adjust metformin, insulin, and add SGLT2. Continue mod ISS. Will transfer to medical. Radha
[2020-07-20] MEDS: Fluticasone Propionate Nasal Spray 16 gm Bottle NASAL SCH (09:23)
[2020-07-20] MEDS: REMDESIVIR (EUA) 100 MG in Sodium Chloride 0.9% 250 ML 230 ML IV SCH (20:28)
[2020-07-20] MEDS ORDERED: Insulin Glargine 40 UNITS in Pre-Filled Syringe 1 EACH SC SCH (21:00)
[2020-07-21] MEDS ORDERED: Sodium Chloride 0.65% Nasal 44 ML BOT EA NARE PRN (01:49)
[2020-07-21] MEDS ORDERED: Melatonin 3 MG TAB PO PRN (01:49)
[2020-07-21 05:47] LABS: ALT (SGPT) 19 U/L (8-55); AST (SGOT) 23 U/L (5-34); Albumin 3.3 g/dL (3.5-5.0); Alkaline Phosphatase 56 U/L (40-110); Anion Gap 18 mmol/L (10-20); BUN (Urea Nitrogen) 33 mg/dL (8.4-25.7); Bilirubin, Total 0.3 mg/dL (0.2-1.2); Calc. Creatinine Clearance 98 mL/min (70-130); Calcium 8.3 mg/dL (7.8-10.44); Carbon Dioxide 17 mmol/L (22-29); Chloride 108 mmol/L (98-107); Globulin 3.5 g/dL (2.4-3.5); Glucose 228 mg/dL (70-105); Potassium 4.2 mmol/L (3.5-5.1); Protein, Total 6.8 g/dL (6.0-8.3); Sodium 139 mmol/L (136-145)
[2020-07-21 05:54] LABS: Hemoglobin 14.1 g/dL (14.0-18.0); Lymphocytes 10 % (21-51); MDiff Complete? YES; Mean Corpuscular HGB CONC 34.4 g/dL (32.0-36.0); Mean Corpuscular Hemoglobin 31.7 pg (27.0-31.0); Mean Platelet Volume 7.6 fL (7.4-10.4); Metamyelocyte 1 % (0-0); Monocytes 4 % (0-10); Neutrophil 83 % (42-75); Platelet Count 325 thou/uL (130-400); Platelet Morphology Comment Appears Adequate; RBC Distribution Width 12.3 % (11.5-14.5); RBC Morphology Normal; Reactive Lymphocytes 2 % (0-10); Red Blood Cell (RBC) Count 4.44 mill/uL (4.70-6.10)
[2020-07-21] MEDS: Albuterol 200 PUFF (6.7GM INHALER) INH SCH (06:21)
[2020-07-21] MEDS: HumaLOG 300 UNITS/3 ML VIAL SC PRN ×3 (06:22→17:50)
--- NOTE | 2020-07-21 06:23 | PDOC.FM ---
- Subjective Subjective: Mr. Stone is okay this morning. He will desat with any movement but is comfortable on HFNC in bed. Denies fever, diarrhea. He is unsure if the albuterol makes a difference. He is able to talk in full sentences. Did not sleep well last night. - Objective Vital Signs & Weight: Vital Signs (12 hours) Temp Pulse Resp BP Pulse Ox 07/21/20 03:00 98.2 F 65 22 H 127/77 96 07/21/20 00:49 93 L 07/21/20 00:21 93 L 07/21/20 00:15 88 L 07/20/20 23:35 98.3 F 74 24 H 133/80 92 L 07/20/20 19:05 98.0 F 86 22 H 146/78 H 92 L Weight Weight 99.8 kg I&O: 07/19/20 07/20/20 07/21/20 06:59 06:59 06:59 Intake Total 840 2000 Output Total 1250 2295 Balance -410 -295 Result Diagrams: 07/21/20 04:41 07/21/20 04:41 Phys Exam - Physical Examination Constitutional: NAD Respiratory: clear to auscultation bilateral Cardiovascular: RRR, no significant murmur Gastrointestinal: soft, non-tender Musculoskeletal: no edema Neurological: non-focal Psychiatric: normal affect Skin: normal turgor Dx/Plan - Plan Plan: 59 yo M here for acute hypoxic respiratory failure 2/2 COVID PNA Acute hypoxic respiratory failure 2/2 COVID PNA -85% on RA at home->NC-> HFNC 07/19 -CTA: extensive b/l groundglass opacities, no PE -continue dexamethasone daily, albuterol to prn -s/p convalescent plasma 07/18 -remdesivir started 07/18 -cefepime discontinued considering procal 0.9, rechecked and 0.44 - no concern for bacterial infection -HFNC 60L/70% New onset DM2, uncontrolled -Pt with CDL, 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 Continue empagliflozin. Continue to titrate nighttime lantus -Diabetes education DKA, resolved -BHB elevated, AG 19, hyperglycemic - resolved overnight, DKA protocol discontinued, gap closed, continue lantus, SSI. Accuchecks now ACHS. DARELL, improved -likely prerenal, improved with IVF overnight -oral hydration Gout -Continue home allopurinol Allergies - continue home antihistamine, added singular and afrin prn today IVF:SL Diet: CC Ppx: lovenox PCP-[facility] Dispo: continue HFNC, pending clinical improvement Addendum - Attending - Attending Attestation Date/Time: 07/21/20 8782 I personally evaluated the patient and discussed the management with Dr. Nugent I agree with the History, Examination, Assessment and Plan documented above with any addition or exceptions noted below. 59 yo male admitted for acute hypoxic respiratory failure due to COVID19 with underlying obesity, gout, and newly dx DM Continues to improve. Remains on HFNC but will start to wean. Glucose improved with medication changes but still needs improvement. Increase Lantus to 50 due to amount required for correction. Continue current PO dosing at this time but will need to increase. Will attempt to complete 10 day course of steroids and remedesivir. Radha
[2020-07-21] MEDS: Dexamethasone 4 MG TAB PO SCH (09:27)
[2020-07-21] MEDS: metFORMIN XR 500 MG TAB PO SCH (09:27)
[2020-07-21] MEDS: Allopurinol 300 MG TAB PO SCH (09:28)
[2020-07-21] MEDS: Loratadine 10 MG TAB PO SCH (09:28)
[2020-07-21] MEDS: Famotidine 20 MG TAB PO SCH ×2 (09:28→21:55)
[2020-07-21] MEDS: Empagliflozin 10 MG TAB PO SCH (09:29)
[2020-07-21] MEDS: Enoxaparin Sodium 40 MG/0.4 ML SYRINGE SC SCH (09:29)
[2020-07-21] MEDS: Fluticasone Propionate Nasal Spray 16 gm Bottle NASAL SCH (09:30)
[2020-07-21] MEDS ORDERED: AFRIN NASAL MIST 15 ML BOT NS PRN (10:08)
[2020-07-21] MEDS ORDERED: Montelukast Sodium 10 mg Tablet PO SCH ×2 (10:15→21:00)
[2020-07-21] MEDS: Oxymetazoline HCl 0.05% (30 ML BOT) NS PRN (12:24)
[2020-07-21] MEDS ORDERED: metFORMIN 500 MG TAB PO SCH (17:00)
[2020-07-21] MEDS ORDERED: Insulin Glargine 50 UNITS in Pre-Filled Syringe 1 EACH SC SCH (21:00)
[2020-07-21] MEDS: REMDESIVIR (EUA) 100 MG in Sodium Chloride 0.9% 250 ML 230 ML IV SCH (22:54)
[2020-07-22 05:21] LABS: ALT (SGPT) 17 U/L (8-55); AST (SGOT) 18 U/L (5-34); Albumin 3.3 g/dL (3.5-5.0); Alkaline Phosphatase 55 U/L (40-110); Bilirubin, Direct 0.2 mg/dL (0.1-0.3); Bilirubin, Total 0.4 mg/dL (0.2-1.2); Protein, Total 6.4 g/dL (6.0-8.3)
--- NOTE | 2020-07-22 06:14 | PDOC.FM ---
- Subjective Subjective: Mr. Stone has not had any major events overnight. His HFNC settings have been weaned slightly. He did not receive his lantus last night. Has SOB, desat with any activity - Objective Vital Signs & Weight: Vital Signs (12 hours) Temp Pulse Resp BP Pulse Ox 07/22/20 05:16 96 07/22/20 04:00 98.4 F 69 18 145/81 H 96 07/22/20 00:05 98 07/21/20 20:00 98.3 F 78 12 144/73 H 98 Weight Weight 99.8 kg I&O: 07/20/20 07/21/20 07/22/20 06:59 06:59 06:59 Intake Total 840 2000 2640 Output Total 1250 2295 3250 Balance -410 -598 -406 Result Diagrams: 07/21/20 04:41 07/21/20 04:41 Phys Exam - Physical Examination Constitutional: NAD Respiratory: no wheezing, no rhonchi Cardiovascular: RRR, no significant murmur Gastrointestinal: soft, non-tender Musculoskeletal: no edema Neurological: non-focal Psychiatric: normal affect Skin: normal turgor Dx/Plan - Plan Plan: 59 yo M here for acute hypoxic respiratory failure 2/2 COVID PNA Acute hypoxic respiratory failure 2/2 COVID PNA -85% on RA at home->NC-> HFNC 07/19 -CTA: extensive b/l groundglass opacities, no PE -continue dexamethasone daily, albuterol prn -s/p convalescent plasma 07/18 -remdesivir started 07/18 -cefepime discontinued considering procal 0.9, rechecked and 0.44 - no concern for bacterial infection -HFNC 50L/50% New onset DM2, uncontrolled -Pt with CDL, 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 Continue empagliflozin. Continue to titrate daily lantus -Diabetes education DKA, resolved -BHB elevated, AG 19, hyperglycemic - resolved overnight, DKA protocol discontinued, gap closed, continue lantus DARELL, improved -likely prerenal, improved with IVF overnight -oral hydration Gout -Continue home allopurinol Allergies - continue home antihistamine, added singular and afrin prn IVF:SL Diet: CC Ppx: lovenox PCP-[facility] Dispo: continue HFNC, has made small amount of clinical improvement Addendum - Attending - Attending Attestation Date/Time: 07/22/20 1101 I personally evaluated the patient and discussed the management with Dr. Nugent I agree with the History, Examination, Assessment and Plan documented above with any addition or exceptions noted below. 59 yo male admitted for acute hypoxic respiratory failure due to COVID19 with underlying obesity, gout, and newly dx DM Continues to improve. Remains on HFNC but weaning rate and FIO2 Became symptomatic with short-acting insulin last night. Therefore basal was inaccurately held. Will switch to giving basal in AM. Decrease ISS back down to mild. Remains hopeful and stable. Radha
[2020-07-22] MEDS: HumaLOG 300 UNITS/3 ML VIAL SC PRN ×4 (06:17→22:46)
[2020-07-22] MEDS: Allopurinol 300 MG TAB PO SCH (08:44)
[2020-07-22] MEDS: Loratadine 10 MG TAB PO SCH (08:44)
[2020-07-22] MEDS: metFORMIN XR 500 MG TAB PO SCH (08:45)
[2020-07-22] MEDS: Famotidine 20 MG TAB PO SCH ×2 (08:45→22:45)
[2020-07-22] MEDS: Enoxaparin Sodium 40 MG/0.4 ML SYRINGE SC SCH (08:45)
[2020-07-22] MEDS: Montelukast Sodium 10 mg Tablet PO SCH (08:45)
[2020-07-22] MEDS: Dexamethasone 4 MG TAB PO SCH (08:46)
[2020-07-22] MEDS: Empagliflozin 10 MG TAB PO SCH (08:46)
[2020-07-22] MEDS ORDERED: Insulin Glargine 45 UNITS in Pre-Filled Syringe 1 EACH SC SCH (09:00)
[2020-07-22] MEDS: Fluticasone Propionate Nasal Spray 16 gm Bottle NASAL SCH (09:17)
[2020-07-22] MEDS: Albuterol 200 PUFF (6.7GM INHALER) INH PRN (09:18)
[2020-07-22] MEDS: Oxymetazoline HCl 0.05% (30 ML BOT) NS PRN (09:18)
[2020-07-22] MEDS: REMDESIVIR (EUA) 100 MG in Sodium Chloride 0.9% 250 ML 230 ML IV SCH (22:45)
--- NOTE | 2020-07-23 06:53 | PDOC.FM ---
- Subjective Subjective: Doing well, breathing the same. No complaints or concerns today. - Objective MAR Reviewed: Yes Vital Signs & Weight: Vital Signs (12 hours) Temp Pulse Resp BP Pulse Ox 07/23/20 04:46 100 07/22/20 23:35 97.8 F 67 18 152/87 H 100 07/22/20 21:10 97.9 F 66 18 164/89 H 95 Weight Weight 99.8 kg I&O: 07/21/20 07/22/20 07/23/20 06:59 06:59 06:59 Intake Total 1999 3340 1100 Output Total 2295 3250 900 Balance -295 90 200 Result Diagrams: 07/23/20 07:21 07/23/20 07:21 Phys Exam - Physical Examination Constitutional: NAD HEENT: PERRLA, moist MMs, sclera anicteric Respiratory: no wheezing, no rales, clear to auscultation bilateral Cardiovascular: RRR, no significant murmur Gastrointestinal: soft, non-tender Musculoskeletal: no edema Neurological: non-focal, moves all 4 limbs Psychiatric: normal affect, A&O x 3 Skin: no rash, cap refill <2 seconds Dx/Plan - Plan Plan: 59 yo M here for acute hypoxic respiratory failure 2/2 COVID PNA Acute hypoxic respiratory failure 2/2 COVID PNA -85% on RA at home->NC-> HFNC 07/19 -CTA: extensive b/l groundglass opacities, no PE -continue dexamethasone daily, albuterol prn -s/p convalescent plasma 07/18 -remdesivir started 07/18 -cefepime discontinued considering procal 0.9, rechecked and 0.44 - no concern for bacterial infection -HFNC 45L/54% New onset DM2, uncontrolled -Pt with CDL, 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 Continue empagliflozin, will inc. -Diabetes education DKA, resolved -BHB elevated, AG 19, hyperglycemic - resolved overnight, DKA protocol discontinued, gap closed, continue lantus DARELL, improved -likely prerenal, improved with IVF overnight -oral hydration Gout -Continue home allopurinol Allergies - continue home antihistamine, added singular and afrin prn IVF:SL Diet: CC Ppx: lovenox PCP-[facility] Dispo: continue HFNC, has made small amount of clinical improvement Addendum - Attending - Attending Attestation Date/Time: 07/23/20 1027 I personally evaluated the patient and discussed the management with Dr. Stewart. I agree with the History, Examination, Assessment and Plan documented above with any addition or exceptions noted below. Patient overall stable, reports some improvement in resp status. Continue to wean HFNC as tolerated. Encouraged more sitting up and ambulation today if possible. BP continues to run high, starting ACEi given his new onset DM2 status as well. Monitor and augment glycemic control as needed. Place on Protonix given his steroids and NSAID use status. Continues on usual COVID therapies.
[2020-07-23] MEDS ORDERED: Insulin Glargine 47 UNITS in Pre-Filled Syringe 1 EACH SC SCH (07:03)
[2020-07-23 07:31] LABS: #Basophils 0.1 thou/uL (0.0-0.2); #Eosinphils 0.1 thou/uL (0.0-0.7); #Lymphocytes 2.8 thou/uL (1.20-3.40); #Monocytes 1.4 thou/uL (0.11-0.59); #Neutrophils 15.3 thou/uL (1.40-6.50); %Basophils 0.3 % (0.0-1.0); %Eosinophils 0.6 % (0.0-10.0); %Lymphocytes 14.5 % (21.0-51.0); %Neutrophils 77.7 % (42.0-75.0); Hemoglobin 14.2 g/dL (14.0-18.0); Mean Corpuscular Hemoglobin 30.8 pg (27.0-31.0); Mean Corpuscular Volume 90.6 fL (78.0-98.0); Mean Platelet Volume 7.1 fL (7.4-10.4); Platelet Count 395 thou/uL (130-400); RBC Distribution Width 12.2 % (11.5-14.5); Red Blood Cell (RBC) Count 4.63 mill/uL (4.70-6.10); White Blood Cell (WBC) Count 19.6 thou/uL (4.8-10.8)
[2020-07-23 07:54] LABS: Anion Gap 17 mmol/L (10-20); BUN (Urea Nitrogen) 31 mg/dL (8.4-25.7); Carbon Dioxide 16 mmol/L (22-29); Chloride 108 mmol/L (98-107); Potassium 3.8 mmol/L (3.5-5.1); Sodium 137 mmol/L (136-145)
[2020-07-23 07:55] LABS: ALT (SGPT) 18 U/L (8-55); AST (SGOT) 17 U/L (5-34); Albumin 3.4 g/dL (3.5-5.0); Alkaline Phosphatase 52 U/L (40-110); Bilirubin, Total 0.6 mg/dL (0.2-1.2); Calc. Creatinine Clearance 122 mL/min (70-130); Calcium 8.5 mg/dL (7.8-10.44); Globulin 3.3 g/dL (2.4-3.5); Glucose 111 mg/dL (70-105); Protein, Total 6.7 g/dL (6.0-8.3)
[2020-07-23] MEDS: Allopurinol 300 MG TAB PO SCH (08:23)
[2020-07-23] MEDS: metFORMIN XR 500 MG TAB PO SCH (08:24)
[2020-07-23] MEDS: Montelukast Sodium 10 mg Tablet PO SCH (08:24)
[2020-07-23] MEDS: Dexamethasone 4 MG TAB PO SCH (08:24)
[2020-07-23] MEDS: Famotidine 20 MG TAB PO SCH ×2 (08:24→23:31)
[2020-07-23] MEDS: Enoxaparin Sodium 40 MG/0.4 ML SYRINGE SC SCH (08:24)
[2020-07-23] MEDS: Loratadine 10 MG TAB PO SCH (08:24)
[2020-07-23] MEDS ORDERED: Lisinopril 5 MG TAB PO SCH (09:45)
[2020-07-23] MEDS: Insulin Glargine 45 UNITS in Pre-Filled Syringe 1 EACH SC SCH (10:13)
[2020-07-23] MEDS: Albuterol 200 PUFF (6.7GM INHALER) INH PRN (10:13)
[2020-07-23] MEDS: Empagliflozin 25 MG TAB PO SCH (10:14)
[2020-07-23] MEDS: Fluticasone Propionate Nasal Spray 16 gm Bottle NASAL SCH (11:00)
[2020-07-23] MEDS: HumaLOG 300 UNITS/3 ML VIAL SC PRN ×3 (12:36→22:58)
--- NOTE | 2020-07-23 13:46 | RAD ---
PORTABLE CHEST: Date: 07/23/2020 HISTORY: Cough and fever. FINDINGS: Heart size is within normal limits. Bilateral lung infiltrates, felt to be fairly similar in appearan ce as compared to the prior exam. IMPRESSION: Stable bilateral lung infiltrates. POS: EWA
--- NOTE | 2020-07-24 07:11 | PDOC.FM ---
- Subjective Subjective: Reports breathing feels a little better today. No other complaints or concerns at this time. - Objective MAR Reviewed: Yes Vital Signs & Weight: Vital Signs (12 hours) Temp Pulse Resp BP BP Pulse Ox 07/24/20 04:00 98.3 F 66 20 133/88 95 07/23/20 23:36 98.7 F 69 20 144/85 H 96 07/23/20 20:30 97.9 F 68 20 154/82 H 100 07/23/20 20:00 95 Weight Weight 99.8 kg I&O: 07/23/20 07/24/20 07/25/20 06:59 06:59 06:59 Intake Total 1530 1960 Output Total 2430 2220 Balance -900 -260 Result Diagrams: 07/23/20 07:21 07/23/20 07:21 Phys Exam - Physical Examination Constitutional: NAD HEENT: PERRLA, moist MMs Neck: full ROM Respiratory: no wheezing, clear to auscultation bilateral Cardiovascular: RRR, no significant murmur Gastrointestinal: soft, non-tender, no distention Musculoskeletal: no edema Neurological: non-focal, moves all 4 limbs Psychiatric: normal affect, A&O x 3 Skin: cap refill <2 seconds Dx/Plan - Plan Plan: 59 yo M here for acute hypoxic respiratory failure 2/2 COVID PNA Acute hypoxic respiratory failure 2/2 COVID PNA -85% on RA at home->NC-> HFNC 07/19 -CTA: extensive b/l groundglass opacities, no PE -continue dexamethasone daily, albuterol prn -s/p convalescent plasma 07/18 -remdesivir started 07/18 -cefepime discontinued considering procal 0.9 > 0.44 > 0.11 -Repeat CXR 07/23: stable, unchanged -HFNC 45L/49% New onset DM2, uncontrolled -Pt with CDL, 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 Increase Lantus 45> 48 units DKA, resolved -BHB elevated, AG 19, hyperglycemic - resolved overnight, DKA protocol discontinued, gap closed, continue lantus DARELL, resolved Gout -Continue home allopurinol Allergies - continue home antihistamine, added singular and afrin prn IVF:SL Diet: CC Ppx: lovenox GI ppx: protonix PCP-[facility] Dispo: continue HFNC, has made small amount of clinical improvement Addendum - Attending - Attending Attestation Date/Time: 07/24/20 1050 I personally evaluated the patient and discussed the management with Dr. Stewart. I agree with the History, Examination, Assessment and Plan documented above with any addition or exceptions noted below. Patient overall stable. Continues on the same HFNC settings as yesterday, will attempt to titrate down. Encourage OOB activity and ambulation. Continue other standard therapies. Increasing insulin regimen for better glycemic control.
[2020-07-24] MEDS: Enoxaparin Sodium 40 MG/0.4 ML SYRINGE SC SCH (08:09)
[2020-07-24] MEDS: Famotidine 20 MG TAB PO SCH (08:10)
[2020-07-24] MEDS: Dexamethasone 4 MG TAB PO SCH (08:10)
[2020-07-24] MEDS: metFORMIN XR 500 MG TAB PO SCH (08:12)
[2020-07-24] MEDS: Montelukast Sodium 10 mg Tablet PO SCH (08:12)
[2020-07-24] MEDS: Empagliflozin 25 MG TAB PO SCH (08:12)
[2020-07-24] MEDS: Lisinopril 5 MG TAB PO SCH (08:12)
[2020-07-24] MEDS: Allopurinol 300 MG TAB PO SCH (08:12)
[2020-07-24] MEDS: Loratadine 10 MG TAB PO SCH (08:13)
[2020-07-24] MEDS: Fluticasone Propionate Nasal Spray 16 gm Bottle NASAL SCH (08:24)
[2020-07-24] MEDS: Insulin Glargine 45 UNITS in Pre-Filled Syringe 1 EACH SC SCH (09:04)
[2020-07-24] MEDS ORDERED: Insulin Glargine 48 UNITS in Pre-Filled Syringe 1 EACH SC SCH (09:20)
[2020-07-24] MEDS: HumaLOG 300 UNITS/3 ML VIAL SC PRN ×3 (11:28→22:06)
[2020-07-25 06:52] LABS: #Basophils 0.1 thou/uL (0.0-0.2); #Eosinphils 0.5 thou/uL (0.0-0.7); #Lymphocytes 2.4 thou/uL (1.20-3.40); #Monocytes 0.9 thou/uL (0.11-0.59); #Neutrophils 8.8 thou/uL (1.40-6.50); %Basophils 0.6 % (0.0-1.0); %Eosinophils 3.6 % (0.0-10.0); %Monocytes 7.3 % (0.0-10.0); %Neutrophils 69.5 % (42.0-75.0); Hemoglobin 15.6 g/dL (14.0-18.0); Mean Corpuscular HGB CONC 33.5 g/dL (32.0-36.0); Mean Corpuscular Hemoglobin 31.3 pg (27.0-31.0); Mean Corpuscular Volume 93.5 fL (78.0-98.0); Mean Platelet Volume 7.3 fL (7.4-10.4); Platelet Count 353 thou/uL (130-400); RBC Distribution Width 12.4 % (11.5-14.5); Red Blood Cell (RBC) Count 4.98 mill/uL (4.70-6.10); White Blood Cell (WBC) Count 12.7 thou/uL (4.8-10.8)
[2020-07-25 07:07] LABS: ALT (SGPT) 18 U/L (8-55); AST (SGOT) 16 U/L (5-34); Albumin 3.4 g/dL (3.5-5.0); Alkaline Phosphatase 48 U/L (40-110); Anion Gap 15 mmol/L (10-20); BUN (Urea Nitrogen) 28 mg/dL (8.4-25.7); Bilirubin, Total 0.5 mg/dL (0.2-1.2); Calc. Creatinine Clearance 109 mL/min (70-130); Calcium 8.9 mg/dL (7.8-10.44); Carbon Dioxide 23 mmol/L (22-29); Chloride 105 mmol/L (98-107); Globulin 3.6 g/dL (2.4-3.5); Glucose 132 mg/dL (70-105); Potassium 4.3 mmol/L (3.5-5.1); Sodium 139 mmol/L (136-145)
--- NOTE | 2020-07-25 07:54 | PDOC.FM ---
- Subjective Subjective: Reports doing well, breathing feels improved. No concerns overnight. - Objective MAR Reviewed: Yes Vital Signs & Weight: Vital Signs (12 hours) Temp Pulse Resp BP Pulse Ox 07/25/20 07:41 93 L 07/25/20 00:00 97.5 F L 64 20 122/82 96 07/24/20 20:00 98 Weight Weight 99.8 kg I&O: 07/24/20 07/25/20 07/26/20 06:59 06:59 06:59 Intake Total 1960 1000 Output Total 2220 1900 Balance -260 -900 Result Diagrams: 07/25/20 06:34 07/25/20 06:34 Phys Exam - Physical Examination Constitutional: NAD HEENT: PERRLA, moist MMs, sclera anicteric Respiratory: no wheezing, clear to auscultation bilateral Cardiovascular: RRR, no significant murmur Gastrointestinal: soft, non-tender Musculoskeletal: no edema Neurological: non-focal, moves all 4 limbs Psychiatric: normal affect, A&O x 3 Skin: normal turgor Dx/Plan - Plan Plan: 59 yo M here for acute hypoxic respiratory failure 2/2 COVID PNA Acute hypoxic respiratory failure 2/2 COVID PNA -85% on RA at home->NC-> HFNC 07/19 -CTA: extensive b/l groundglass opacities, no PE -continue dexamethasone daily, albuterol prn -s/p convalescent plasma 07/18 -remdesivir started 07/18 -cefepime discontinued considering procal 0.9 > 0.44 > 0.11 -Repeat CXR 07/23: stable, unchanged -HFNC 40L/40% this morning, if does well this afternoon can transition to 6 [place]. 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 Increase Lantus 45> 48 units DKA, resolved -BHB elevated, AG 19, hyperglycemic - resolved overnight, DKA protocol discontinued, gap closed, continue lantus DARELL, resolved Gout -Continue home allopurinol Allergies - continue home antihistamine, added singular and afrin prn IVF:SL Diet: CC Ppx: lovenox GI ppx: protonix PCP-[facility] Dispo: continue HFNC, has made small amount of clinical improvement Addendum - Attending - Attending Attestation Date/Time: 07/25/20 2166 I personally evaluated the patient and discussed the management with Dr. Stewart. I agree with the History, Examination, Assessment and Plan documented above with any addition or exceptions noted below.
[2020-07-25] MEDS: Dexamethasone 4 MG TAB PO SCH (08:50)
[2020-07-25] MEDS: Lisinopril 5 MG TAB PO SCH (08:50)
[2020-07-25] MEDS: Allopurinol 300 MG TAB PO SCH (08:51)
[2020-07-25] MEDS: Montelukast Sodium 10 mg Tablet PO SCH (08:51)
[2020-07-25] MEDS: Empagliflozin 25 MG TAB PO SCH (08:51)
[2020-07-25] MEDS: Loratadine 10 MG TAB PO SCH (08:51)
[2020-07-25] MEDS: Enoxaparin Sodium 40 MG/0.4 ML SYRINGE SC SCH (08:51)
[2020-07-25] MEDS ORDERED: Insulin Glargine 48 UNITS in Pre-Filled Syringe 1 EACH SC SCH (09:00)
[2020-07-25] MEDS: metFORMIN XR 500 MG TAB PO SCH (09:26)
[2020-07-25] MEDS: Fluticasone Propionate Nasal Spray 16 gm Bottle NASAL SCH (10:27)
[2020-07-25] MEDS: HumaLOG 300 UNITS/3 ML VIAL SC PRN ×3 (12:52→22:48)
[2020-07-25] MEDS: metFORMIN 500 MG TAB PO SCH (22:18)
--- NOTE | 2020-07-26 08:07 | PDOC.FM ---
- Subjective Subjective: Doing well today on 6L, weaned down to 4L in room and stayed >95%. Endorses night sweats but denies fevers, diarrhea, cough. No other concerns at this time. - Objective Vital Signs & Weight: Vital Signs (12 hours) Temp Pulse Resp BP Pulse Ox 07/26/20 07:56 98.0 F 71 16 108/73 93 L 07/26/20 04:00 97.6 F 79 18 105/73 94 L 07/26/20 00:00 97.6 F 67 20 119/81 94 L Weight Weight 99.8 kg I&O: 07/25/20 07/26/20 07/27/20 06:59 06:59 06:59 Intake Total 1000 2700 Output Total 1900 3200 Balance -900 -500 Result Diagrams: 07/25/20 06:34 07/25/20 06:34 Phys Exam - Physical Examination Constitutional: NAD HEENT: moist MMs Neck: full ROM Respiratory: no wheezing, clear to auscultation bilateral Cardiovascular: RRR, no significant murmur Musculoskeletal: no edema Neurological: non-focal, moves all 4 limbs Psychiatric: normal affect, A&O x 3 Dx/Plan - Plan Plan: 59 yo M here for acute hypoxic respiratory failure 2/2 COVID PNA Acute hypoxic respiratory failure 2/2 COVID PNA -85% on RA at home->NC-> HFNC 07/19 -CTA: extensive b/l groundglass opacities, no PE -continue dexamethasone daily, albuterol prn -s/p convalescent plasma 07/18 -remdesivir started 07/18 -cefepime discontinued considering procal 0.9 > 0.44 > 0.11 -Repeat CXR 07/23: stable, unchanged -HFNC 40L/40% this morning, if does well this afternoon can transition to 6 [place]. 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 Increase Lantus to 27 BID DKA, resolved -BHB elevated, AG 19, hyperglycemic - resolved overnight, DKA protocol discontinued, gap closed, continue lantus DARELL, resolved Gout -Continue home allopurinol Allergies - continue home antihistamine, added singular and afrin prn IVF:SL Diet: CC Ppx: lovenox GI ppx: protonix PCP-[facility] Dispo: continue weaning NC O2, work wiht PT today Addendum - Attending - Attending Attestation Date/Time: 07/26/20 5553 I personally evaluated the patient and discussed the management with Dr. Stewart. I agree with the History, Examination, Assessment and Plan documented above with any addition or exceptions noted below.
[2020-07-26] MEDS: Loratadine 10 MG TAB PO SCH (08:58)
[2020-07-26] MEDS: Empagliflozin 25 MG TAB PO SCH (08:58)
[2020-07-26] MEDS: Montelukast Sodium 10 mg Tablet PO SCH (08:58)
[2020-07-26] MEDS: Allopurinol 300 MG TAB PO SCH (08:58)
[2020-07-26] MEDS: Dexamethasone 4 MG TAB PO SCH (08:59)
[2020-07-26] MEDS: Enoxaparin Sodium 40 MG/0.4 ML SYRINGE SC SCH (09:00)
[2020-07-26] MEDS: metFORMIN 500 MG TAB PO SCH ×2 (09:00→21:37)
[2020-07-26] MEDS ORDERED: Insulin Glargine 26 UNITS in Pre-Filled Syringe 1 EACH SC SCH (09:00)
[2020-07-26] MEDS: Albuterol 200 PUFF (6.7GM INHALER) INH PRN (09:03)
[2020-07-26] MEDS: Fluticasone Propionate Nasal Spray 16 gm Bottle NASAL SCH (09:05)
[2020-07-26] MEDS: Insulin Glargine 27 UNITS in Pre-Filled Syringe 1 EACH SC SCH ×2 (09:05→21:37)
[2020-07-26] MEDS: Lisinopril 5 MG TAB PO SCH (12:50)
[2020-07-26] MEDS: HumaLOG 300 UNITS/3 ML VIAL SC PRN ×3 (12:51→21:38)
[2020-07-27 06:14] LABS: #Basophils 0.1 thou/uL (0.0-0.2); #Eosinphils 0.1 thou/uL (0.0-0.7); #Lymphocytes 2.9 thou/uL (1.20-3.40); #Neutrophils 10.5 thou/uL (1.40-6.50); %Eosinophils 0.6 % (0.0-10.0); %Monocytes 6.9 % (0.0-10.0); %Neutrophils 71.6 % (42.0-75.0); Hemoglobin 15.2 g/dL (14.0-18.0); Mean Corpuscular HGB CONC 32.2 g/dL (32.0-36.0); Mean Corpuscular Hemoglobin 29.4 pg (27.0-31.0); Mean Corpuscular Volume 91.4 fL (78.0-98.0); Mean Platelet Volume 8.3 fL (7.4-10.4); Platelet Count 335 thou/uL (130-400); RBC Distribution Width 12.3 % (11.5-14.5); Red Blood Cell (RBC) Count 5.18 mill/uL (4.70-6.10); White Blood Cell (WBC) Count 14.7 thou/uL (4.8-10.8)
[2020-07-27 06:37] LABS: ALT (SGPT) 19 U/L (8-55); AST (SGOT) 14 U/L (5-34); Albumin 3.6 g/dL (3.5-5.0); Alkaline Phosphatase 47 U/L (40-110); Anion Gap 17 mmol/L (10-20); BUN (Urea Nitrogen) 30 mg/dL (8.4-25.7); Bilirubin, Total 0.5 mg/dL (0.2-1.2); Calc. Creatinine Clearance 101 mL/min (70-130); Calcium 9.1 mg/dL (7.8-10.44); Carbon Dioxide 25 mmol/L (22-29); Chloride 102 mmol/L (98-107); Globulin 3.4 g/dL (2.4-3.5); Glucose 106 mg/dL (70-105); Potassium 4.5 mmol/L (3.5-5.1); Sodium 139 mmol/L (136-145)
[2020-07-27] MEDS: Montelukast Sodium 10 mg Tablet PO SCH (09:06)
[2020-07-27] MEDS: Dexamethasone 4 MG TAB PO SCH (09:06)
[2020-07-27] MEDS: Allopurinol 300 MG TAB PO SCH (09:06)
[2020-07-27] MEDS: metFORMIN 500 MG TAB PO SCH (09:06)
[2020-07-27] MEDS: Loratadine 10 MG TAB PO SCH (09:07)
[2020-07-27] MEDS: Enoxaparin Sodium 40 MG/0.4 ML SYRINGE SC SCH (09:07)
[2020-07-27] MEDS: Lisinopril 5 MG TAB PO SCH ×2 (09:07→09:25)
[2020-07-27] MEDS: Empagliflozin 25 MG TAB PO SCH (09:10)
[2020-07-27] MEDS: Insulin Glargine 27 UNITS in Pre-Filled Syringe 1 EACH SC SCH (09:10)
[2020-07-27] MEDS: Fluticasone Propionate Nasal Spray 16 gm Bottle NASAL SCH (09:31)
[2020-07-27] MEDS ORDERED: Lisinopril 2.5 MG TAB PO SCH (10:30)
--- NOTE | 2020-07-27 11:42 | PDOC.FM ---
- Subjective Subjective: Doing well today, down to 2L [place]. Walked around with PT yesterday. Ready to go home. - Objective MAR Reviewed: Yes Vital Signs & Weight: Vital Signs (12 hours) Temp Pulse Resp BP BP Pulse Ox 07/27/20 09:29 107/71 07/27/20 08:00 97.6 F 80 20 105/71 95 07/27/20 04:00 98.1 F 65 18 121/82 93 L 07/27/20 00:00 97.9 F 66 18 113/77 94 L Weight Admit Weight 99.79 kg Weight 99.8 kg I&O: 07/26/20 07/27/20 07/28/20 06:59 06:59 06:59 Intake Total 2700 2200 Output Total 3200 3700 Balance -500 -1500 Result Diagrams: 07/27/20 05:38 07/27/20 05:38 Phys Exam - Physical Examination Constitutional: NAD HEENT: moist MMs, sclera anicteric Neck: full ROM no respiratory distress, good movement of air Cardiovascular: RRR Musculoskeletal: no edema Neurological: non-focal, moves all 4 limbs Psychiatric: normal affect, A&O x 3 Dx/Plan - Plan Plan: 59 yo M here for acute hypoxic respiratory failure 2/2 COVID PNA Acute hypoxic respiratory failure 2/2 COVID PNA -85% on RA at home->NC-> HFNC 07/19 -CTA: extensive b/l groundglass opacities, no PE -continue dexamethasone daily, albuterol prn -s/p convalescent plasma 07/18 -remdesivir started 07/18 -cefepime discontinued considering procal 0.9 > 0.44 > 0.11 -Repeat CXR 07/23: stable, unchanged -Down to 2LN.C., ready for home New onset DM2, uncontrolled -Pt with CDL, 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 Increase Lantus to 27 BID DKA, resolved -BHB elevated, AG 19, hyperglycemic - resolved overnight, DKA protocol discontinued, gap closed, continue lantus DARELL, resolved Gout -Continue home allopurinol Allergies - continue home antihistamine, added singular and afrin prn IVF:SL Diet: CC Ppx: lovenox GI ppx: protonix PCP-[facility] Dispo: home today Addendum - Attending - Attending Attestation Date/Time: 07/27/20 1142 I personally evaluated the patient and discussed the management with Dr. Stewart. I agree with the History, Examination, Assessment and Plan documented above with any addition or exceptions noted below. Patient doing well. Weaning off O2 and now on 2L. He has completed all known COVID therapies. He is stable for discharge home. Continue insulin therapy and statin/ACEi for DM.
[2020-07-27 12:33] VITALS: BP 114/76; TEMP 97.5
[2020-07-27] MEDS: HumaLOG 300 UNITS/3 ML VIAL SC PRN (12:51)
[2020-07-27] MEDS ORDERED: Atorvastatin Calcium 40 MG TAB PO SCH (21:00)
--- NOTE | 2020-07-27 23:00 | DIS ---
DATE OF ADMISSION: 07/18/2020 DATE OF DISCHARGE: 07/27/2020 ADMITTING ATTENDING: Sharlene Barber MD DISCHARGE ATTENDING: Fly Zaragoza MD RESIDENT: Candy Stewart, PGY-1. ADMITTING DIAGNOSES: 1. Acute hypoxic respiratory failure secondary to COVID pneumonia. 2. COVID pneumonia. 3. New onset insulin-dependent diabetes. 4. Diabetic ketoacidosis, resolved. 5. Acute kidney injury, resolved. 6. Microalbuminuria, likely secondary to diabetes. SECONDARY DIAGNOSES: 1. Gout. 2. Seasonal allergies. PERTINENT PROCEDURES, IMAGING AND LABS: 1. Thorax CTA: No evidence for PE. Pulmonary parenchymal findings typical for COVID pneumonia. 2. A1c 12.9% on 07/18/2020, microalbumin to creatinine ratio is 423.6. DISCHARGE MEDICATIONS: New medications: 1. Jardiance 25 mg p.o. daily. 2. Dexamethasone 4 mg 1 tab p.o. daily x1 tab total. 3. Lisinopril 2.5 mg p.o. daily. 4. Atorvastatin 40 mg p.o. q.h.s. 5. Glargine/Lantus Pen 27 units subcu b.i.d. 6. Metformin extended release 1 g p.o. b.i.d. 7. Allopurinol 300 mg p.o. q.a.m. 8. Ibuprofen 200 mg p.o. q.4 hours p.r.n. for pain. 9. Flonase 1 spray in each naris twice daily. 10. Claritin 10 mg p.o. daily. 11. Chloraseptic spray 1 spray p.o. b.i.d. p.r.n. for sore throat. 12. Mylicon 80 mg p.o. q.6 hours p.r.n. for constipation. 13. [place] nasal spray one spray in each naris t.i.d. p.r.n. 14. Albuterol 2 puffs inhaled q.4 hours p.r.n. 15. Singulair 10 mg p.o. daily for 30 days. 16. Tylenol 650 mg p.o. q.6 hours p.r.n. for fever or pain. HISTORY OF PRESENT ILLNESS/HOSPITAL COURSE: Mr. Job Stone is a 59-year-old male with a recent diagnosis of diabetes, who presented to the ER for hypoxia. He had onset of symptoms on 07/08 the night of receiving his first dose of the COVID vaccination. He started experiencing subjective fevers, chills. For the next week and a half, his symptoms did not improve and on had a low oxygen saturation. He had been tested in the clinic 3 times, which were all COVID negative. He is flu negative. Due to worsening symptoms, he was brought into the hospital and admitted for acute hypoxic respiratory failure secondary to COVID pneumonia. He was started on high-flow nasal cannula, steroids, remdesivir, and convalescent plasma. He slowly improved over his hospitalization course and was successfully able to wean down to nasal cannula and work with PT. In regard to his diabetes, he was started on Lantus, metformin, Jardiance, and sugar control improved. After discussion, it was determined he would continue titration of his insulin at home in an outpatient setting. He will be sent home today since he is stable and able to tolerate walking and will have oxygen to use at home. Hopefully, he can wean as tolerated. In addition, the patient did present in DKA with elevated serum ketones and hyperglycemia and was found to be acidotic. He was started on a DKA protocol, but was able to quickly be titrated off it the next few days with better control of his blood sugar. DISPOSITION: Stable. DISCHARGE INSTRUCTIONS: 1. Location: Home. 2. Diet: Diabetic diet, heart healthy diet. 3. Activity: Ad daniela as tolerated. Please titrate to keep oxygen saturation above 92%. Please refrain from extreme physical activity until seen by PCP for clearance. FOLLOWUP: Please follow up with at [facility] next week. The patient is able to come off precautions on 07/29/2020. Job ID: [id number]
[2020-07-28] MEDS ORDERED: Lisinopril 2.5 MG TAB PO SCH (09:00)
--- NOTE | 2020-07-28 11:47 | EKG ---
Test Reason : Blood Pressure : / mmHG Vent. Rate : 108 BPM Atrial Rate : 108 BPM P-R Int : 112 ms QRS Dur : 078 ms QT Int : 328 ms P-R-T Axes : 011 -12 010 degrees QTc Int : 439 ms Sinus tachycardia Possible Left atrial enlargement Junctional ST depression, probably normal Borderline ECG Confirmed by JAY SWAIN M.D. ([id number]), copy editor GEORGE KOTHARI ([id number]) on 07/28/2020 11:47:29 AM Referred By: Confirmed By:JAY SWAIN M.D.
== END 2020-07-27 15:26 | disposition home or self-care (01) | DRG 871 ==
LOC: ERS 15:12 → 2SW 16:56 → ERHOLD 17:21 → 2SW 07-19 08:02 → T4-B 07-23 18:17 → 2SW 07-23 18:40 → T4-B 07-23 20:36
PROVIDERS: ADMIT Family Medicine; ATTEND Family Medicine
PROC: 8E0ZXY6 Isolation (ICD-10-PCS; principal; 2020-07-18)
PROC: XW033E5 Introduction of Remdesivir Anti-infective into Peripheral Vein, Percutaneous Approach, New Technology Group 5 (ICD-10-PCS; 2020-07-18)
PROC: XW13325 Transfusion of Convalescent Plasma (Nonautologous) into Peripheral Vein, Percutaneous Approach, New Technology Group 5 (ICD-10-PCS; 2020-07-18)
DX: A41.89 Other specified sepsis (principal); E11.10 Type 2 diabetes mellitus with ketoacidosis without coma; U07.1 COVID-19; J12.82 Pneumonia due to coronavirus disease 2019; J96.01 Acute respiratory failure with hypoxia; C74.90 Malignant neoplasm of unspecified part of unspecified adrenal gland; N17.9 Acute kidney failure, unspecified; E87.1 Hypo-osmolality and hyponatremia; E66.9 Obesity, unspecified; E11.65 Type 2 diabetes mellitus with hyperglycemia; R80.8 Other proteinuria; M10.9 Gout, unspecified; J30.2 Other seasonal allergic rhinitis; Z92.21 Personal history of antineoplastic chemotherapy; Z88.1 Allergy status to other antibiotic agents; Z88.2 Allergy status to sulfonamides; Z79.899 Other long term (current) drug therapy; Z87.442 Personal history of urinary calculi; Z90.49 Acquired absence of other specified parts of digestive tract; Z68.32 Body mass index [BMI] 32.0-32.9, adult
CPT/HCPCS: 0240U; 36415; 36416; 36430; 71045; 71275; 80053; 80061; 80076; 81003; 81015; 82010; 82043; 82728; 83036; 83605; 83615; 83690; 83735; 84145; 84443; 84484; 85025; 85379; 85610; 85652; 85730; 86140; 86850; 86900; 86901; 87040; 87086; 93005; 94760; J0692; J1100; J1644; J1650; J1815; J3370; J3480; J3490; J7030; J7050; J8540; P9017; Q9967

== ENCOUNTER 2020-09-05 13:45 | Outpatient (CLI) | payer BC | END 2020-09-05 13:46 | disposition home or self-care (01) | LOC: DTY/OP 13:45 | PROVIDERS: ATTEND Family Medicine | DX: E11.65 Type 2 diabetes mellitus with hyperglycemia (principal) | CPT/HCPCS: 97802 ==